=== PATIENT | male | born 1985 | race Caucasian/White ===

== ENCOUNTER 2016-10-19 16:05 | Emergency (ER) | payer OTHER, MEDICARE ==
[~2016-10-19] VITALS: Ht 175.3 cm; Wt 80.0 kg
[~2016-10-19 16:05] MED LIST: AUGM875T PO; CLON.1 PO; DOXY100T PO; LORTA5 PO
[2016-10-19 16:45] VITALS: BP 110/58; PULSE 85; RESP 22; O2SAT 96
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
[2016-10-19] MEDS ORDERED: CYCL1TAB29 PO (16:56)
[2016-10-19] MEDS ORDERED: IBUP800T23 PO (16:56)
[2016-10-19] MEDS ORDERED: CYCLOBENZAPRINE HCL 10 MG TAB PO ONE (17:00)
[2016-10-19] MEDS ORDERED: IBUPROFEN 800 MG TAB PO ONE (17:00)
== END 2016-10-19 17:23 | disposition home or self-care (01) ==
LOC: NEPB 16:05
DX: M25.511 Pain in right shoulder (principal); S60.812A Abrasion of left wrist, initial encounter; G89.29 Other chronic pain; M54.9 Dorsalgia, unspecified; F17.210 Nicotine dependence, cigarettes, uncomplicated; V49.40XA Driver injured in collision with unspecified motor vehicles in traffic accident, initial encounter
CPT/HCPCS: 99284

== ENCOUNTER 2017-03-26 23:25 | Inpatient (IN) | payer MEDICARE ==
[~2017-03-26] VITALS: Ht 157.5 cm; Wt 71.0 kg
[~2017-03-26 23:25] MED LIST changes: -AUGM875T PO; -CLON.1 PO; +CYCL1TAB29 PO; -DOXY100T PO; +IBUP800T23 PO; -LORTA5 PO
[2017-03-26 23:27] VITALS: BP 133/60; PULSE 100; RESP 16; TEMP 100.1; O2SAT 98
[2017-03-27] MEDS ORDERED: TRAZ100T6 PO (00:18)
[2017-03-27] MEDS ORDERED: ACETAMINOPHEN 325 MG TAB PO ONE (00:30)
[2017-03-27] MEDS ORDERED: CLINDAMYCIN INJ 900 MG in SODIUM CHLORIDE 0.9% INJ 100 ML IV ONE (00:30)
[2017-03-27] MEDS ORDERED: SODIUM CHLOR 0.9% 1000 ML INJ 1,000 ML IV ONE (00:30)
[2017-03-27] MEDS ORDERED: CLIN1CAP5 PO (00:33)
--- NOTE | 2017-03-27 00:33 | PD ---
HPI Chief Complaint: Laceration/Skin Injury Time Seen by Provider: 00:14 Travel History International Travel<30 days: No Contact w/Intl Traveler<30days: No Traveled to known affect area: No History of Present Illness HPI The patient 31 years old. He's had a right index finger wound for about 1 week. He believes is due to one of his dogs claws. Lately he has been cleaning the wound daily and using peroxide which has helped with the healing he reports. He notes over the past couple days developed swelling and erythema about the bilateral lower extremities. The lower extremity erythema can be painful at times. Patient states he is currently abusing IV heroin. He denies a fever here almost temperature is 100.1 in triage. PFSH Past Medical History Hx Anticoagulant Therapy: No Cardiovascular Problems: No Chemotherapy: No Cerebrovascular Accident: No Diabetes: No Diminished Hearing: No Musculoskeletal: Yes (RT SIDED PARALYSIS) Respiratory: No Immunizations Current: Yes Past Surgical History Pacemaker: No Social History Alcohol Use: No Tobacco Use: Yes (1 ppd) Substance Use: Yes (herion) Allergies-Medications (Allergen,Severity, Reaction): Coded Allergies: No Known Allergies (Verified , 03/27/17) Reported Meds & Prescriptions Reported Meds & Active Scripts Active Clindamycin (Clindamycin HCl) 150 Mg Cap 450 Mg PO Q8HR 14 Days Flexeril (Cyclobenzaprine HCl) 10 Mg Tab 10 Mg PO TID PRN Reported Trazodone (Trazodone HCl) 100 Mg Tablet 100 Mg PO HS Review of Systems Except as stated in HPI: all other systems reviewed are Neg General / Constitutional: No: Fever (patient denies) Skin: Positive Lesions Psychiatric: Positive: Substance Abuse Physical Exam Narrative GENERAL: 31-year-old male well-nourished well-developed SKIN: Warm and dry. HEAD: Atraumatic. Normocephalic. EYES: Pupils equal and round. No scleral icterus. No injection or drainage. ENT: No nasal bleeding or discharge. Mucous membranes pink and moist. NECK: Trachea midline. No JVD. CARDIOVASCULAR: Regular rate and rhythm. RESPIRATORY: No accessory muscle use. Clear to auscultation. Breath sounds equal bilaterally. GASTROINTESTINAL: Abdomen soft, non-tender, nondistended. Hepatic and splenic margins not palpable. MUSCULOSKELETAL: Extremities without clubbing, cyanosis, or edema. No obvious deformities. Along the dorsal aspect of the right index finger overlying the proximal phalanx there is a 3 cm ulcerated lesion with granulation tissue and surrounding erythema. There is minimal tenderness overlying the wound margins. There is minimal tenderness with flexion range of motion of the right index finger. There is no swelling involving the middle or distal phalanx. There is no flexion at rest. The bilateral lower feet have areas of confluent erythema with areas of maculopapular erythema blanching without fluctuance. NEUROLOGICAL: Awake and alert. No obvious cranial nerve deficits. Motor grossly within normal limits. Five out of 5 muscle strength in the arms and legs. Normal speech. PSYCHIATRIC: Appropriate mood and affect; insight and judgment normal. Data Data Last Documented VS Vital Signs Date Time Temp Pulse Resp B/P Pulse Ox O2 Delivery O2 Flow Rate FiO2 03/27/17 02:32 16 03/26/17 23:27 100.1 100 133/60 98 Room Air Vital signs reviewed Orders Basic Metabolic Panel (Bmp) (03/27/17 00:23) Complete Blood Count With Diff (03/27/17 00:23) Wound Culture And Gram Stain (03/27/17 00:23) Iv Access Insert/Monitor (03/27/17 00:23) Wound Care (03/27/17 00:23) Clindamycin Inj (Cleocin Inj) (03/27/17 00:30) Sodium Chlor 0.9% 1000 Ml Inj (Ns 1000 M (03/27/17 00:30) Acetaminophen (Tylenol) (03/27/17 00:30) Admit Order (Ed Use Only) (03/27/17 02:35) Labs Laboratory Tests Test 03/27/17 01:30 White Blood Count 21.7 TH/MM3 Red Blood Count 4.71 MIL/MM3 Hemoglobin 14.4 GM/DL Hematocrit 40.6 % Mean Corpuscular Volume 86.2 FL Mean Corpuscular Hemoglobin 30.5 PG Mean Corpuscular Hemoglobin 35.4 % Concent Red Cell Distribution Width 13.9 % Platelet Count 368 TH/MM3 Mean Platelet Volume 8.0 FL Neutrophils (%) (Auto) 71.1 % Lymphocytes (%) (Auto) 17.2 % Monocytes (%) (Auto) 9.6 % Eosinophils (%) (Auto) 1.2 % Basophils (%) (Auto) 0.9 % Neutrophils # (Auto) 15.4 TH/MM3 Lymphocytes # (Auto) 3.7 TH/MM3 Monocytes # (Auto) 2.1 TH/MM3 Eosinophils # (Auto) 0.3 TH/MM3 Basophils # (Auto) 0.2 TH/MM3 CBC Comment DIFF FINAL Differential Comment Sodium Level 135 MEQ/L Potassium Level 3.9 MEQ/L Chloride Level 99 MEQ/L Carbon Dioxide Level 26.4 MEQ/L Anion Gap 10 MEQ/L Blood Urea Nitrogen 19 MG/DL Creatinine 1.01 MG/DL Estimat Glomerular Filtration 87 ML/MIN Rate Random Glucose 113 MG/DL Calcium Level 8.9 MG/DL [facility] Medical Decision Making Medical Screen Exam Complete: Yes Emergency Medical Condition: Yes Medical Record Reviewed: Yes Differential Diagnosis Cellulitis, abscess, dermatitis Narrative Course CBC & BMP Diagram 03/27/17 01:30 Neutrophils 71 Patient has received 900 mg IV clindamycin. He'll be admitted for IV antibiotics for cellulitis of the finger and feet with a leukocytosis of 22,000 fever and tachycardia. d/w Dr Dougherty. Sepsis Criteria SIRS Criteria (2 or more): Heart rate over 90, WBC > 71447, < 4000 or > 10% bands Sepsis Criteria (SIRS+source): Infect source susp/known Diagnosis Primary Impression: Cellulitis Qualified Code: L03.811 - Cellulitis of head except face Admitting Information Admitting Physician Requests: Observation Referrals: Primary Care Physician 2 days Scripts Clindamycin 150 Mg [id number] Mg PO Q8HR 14 Days Ref 0 Prov:Cory Rivero MD 03/27/17 Cory Rivero MD Mar 27, 2017 00:33
[2017-03-27 01:56] LABS: AUTOMATED NEUTROPHIL # 15.4 TH/MM3 (1.8-7.7); BASOPHIL # 0.2 TH/MM3 (0-0.2); BASOPHIL % 0.9 % (0.0-2.0); EOSINOPHIL # 0.3 TH/MM3 (0-0.4); EOSINOPHIL % 1.2 % (0.0-4.0); HEMATOCRIT 40.6 % (39.0-51.0); HEMO FLAGS DIFF FINAL; LYMPH % 17.2 % (9.0-44.0); LYMPHOCYTE # 3.7 TH/MM3 (1.0-4.8); MEAN CELL VOLUME 86.2 FL (80.0-100.0); MEAN CORPUSCULAR HEMOGLOBIN 30.5 PG (27.0-34.0); MEAN CORPUSCULAR HGB CONC 35.4 % (32.0-36.0); MONO % 9.6 % (0.0-8.0); NEUT % 71.1 % (16.0-70.0); PLATELET COUNT 368 TH/MM3 (150-450); RED BLOOD COUNT 4.71 MIL/MM3 (4.50-5.90); RED CELL DISTRIBUTION WIDTH 13.9 % (11.6-17.2); WHITE BLOOD COUNT 21.7 TH/MM3 (4.0-11.0)
[2017-03-27 02:13] LABS: BICARBONATE 26.4 MEQ/L (21.0-32.0); POTASSIUM 3.9 MEQ/L (3.5-5.1)
[2017-03-27 02:32] VITALS: RESP 16
[2017-03-27] MEDS ORDERED: SODIUM CHLOR 0.9% 1000 ML INJ 1,000 ML IV SCH (02:38)
[2017-03-27] MEDS ORDERED: LACTULOSE SYRUP 20 GM/30 ML CUP PO PRN (02:45)
[2017-03-27] MEDS ORDERED: BISACODYL 10 MG SUPP RECTAL PRN (02:45)
[2017-03-27] MEDS ORDERED: MAGNESIUM HYDROXIDE SUSP 30 ML CUP PO PRN (02:45)
[2017-03-27] MEDS ORDERED: ACETAMINOPHEN 325 MG TAB PO PRN (02:45)
[2017-03-27] MEDS ORDERED: LORazepam 2 MG/ML VIAL IV PUSH PRN (02:45)
[2017-03-27] MEDS ORDERED: SENNOSIDES 8.6 MG TAB PO PRN (02:45)
[2017-03-27] MEDS ORDERED: SODIUM CHLORIDE 0.9% FLUSH 10 ML FLUSH IV FLUSH PRN (02:45)
[2017-03-27] MEDS ORDERED: ONDANSETRON HCL 4 MG/2 ML VIAL IVP PRN (02:45)
[2017-03-27] MEDS ORDERED: CEFEPIME INJ 1,000 MG in SODIUM CHLORIDE 0.9% INJ 100 ML IV SCH (03:00)
--- NOTE | 2017-03-27 03:45 | HHI.HP ---
[facility] Primary [facility] Physician No Primary Care Physician Admission Diagnosis cellulitis Diagnoses: (1) Sepsis Diagnosis: Principal (2) Cellulitis Diagnosis: Principal (3) Dehydration Diagnosis: Principal (4) IVDU (intravenous drug user) Diagnosis: Principal (5) Tobacco abuse Diagnosis: Principal Travel History International Travel<30 Days: No Contact w/Intl Traveler <30 Da: No Traveled to Known Affected Are: No History of Present Illness This is a 39-year-old male with a PMH of IVDU w/ Heroin and Tobacco Abuse who presented to the ER with complaints of right finger swelling and pain in addition to redness and pain in bilateral feet. Reports symptoms of been ongoing for approx 1wk. Denies fever or chills. On arrival, BP 133/60, HR 100 , O2 sat 98% on RA, Temp 100.1. WBC 21.7. Chemistry unremarkable except for BUN 19, GFR 87. S/p Blood Cultures, Clinda IV in ER Review of Systems Except as stated in HPI: all other systems reviewed are Neg ROS: 14 point review of systems otherwise negative. Past Family Social History Past Medical History PMH: IVDU w/ Heroin and Tobacco Abuse Past Surgical History PAST SURGICAL HISTORY: None Allergies: Coded Allergies: No Known Allergies (Verified , 03/27/17) Family History PAST FAMILY HISTORY: Reviewed. No h/o DM or CAD Social History PAST SOCIAL HISTORY: Negative for alcohol. Smokes 1ppd. +IVUD w/ Heroin. Physical Exam Vital Signs Vital Signs Date Time Temp Pulse Resp B/P Pulse Ox O2 Delivery O2 Flow Rate FiO2 03/27/17 02:32 16 03/26/17 23:27 100.1 100 16 133/60 98 Room Air Physical Exam PE: GENERAL: Young white male in no acute distress. HEENT: PERRLA, EOMI. No scleral icterus or conjunctival pallor. No lid lag or facial droop. CARDIOVASCULAR: Regular rate and rhythm. No obvious murmurs to auscultation. No chest tenderness to palpation. RESPIRATORY: No obvious rhonchi or wheezing. Clear to auscultation. Breath sounds equal bilaterally. GASTROINTESTINAL: Abdomen soft, non-tender, nondistended. BS normal. MUSCULOSKELETAL: Extremities without clubbing, cyanosis, or edema. No obvious deformities. Right index finger w/ erythema/edema, full ROM. Bilateral lower extremities w/ erythema NEUROLOGICAL: Awake, alert and oriented x4. No focal neurologic deficits. Moving both upper and lower extremities spontaneously. Laboratory Laboratory Tests Test 03/27/17 01:30 White Blood Count 21.7 Red Blood Count 4.71 Hemoglobin 14.4 Hematocrit 40.6 Mean Corpuscular Volume 86.2 Mean Corpuscular Hemoglobin 30.5 Mean Corpuscular Hemoglobin 35.4 Concent Red Cell Distribution Width 13.9 Platelet Count 368 Mean Platelet Volume 8.0 Neutrophils (%) (Auto) 71.1 Lymphocytes (%) (Auto) 17.2 Monocytes (%) (Auto) 9.6 Eosinophils (%) (Auto) 1.2 Basophils (%) (Auto) 0.9 Neutrophils # (Auto) 15.4 Lymphocytes # (Auto) 3.7 Monocytes # (Auto) 2.1 Eosinophils # (Auto) 0.3 Basophils # (Auto) 0.2 CBC Comment DIFF FINAL Differential Comment Sodium Level 135 Potassium Level 3.9 Chloride Level 99 Carbon Dioxide Level 26.4 Anion Gap 10 Blood Urea Nitrogen 19 Creatinine 1.01 Estimat Glomerular Filtration 87 Rate Random Glucose 113 Calcium Level 8.9 Date/Time Procedure Status Source Growth 03/27/17 01:15 Gram Stain Received Wound Finger Pending 03/27/17 01:15 Wound Culture Received Wound Finger Pending Result Diagram: 03/27/17 0130 03/27/17 0130 Assessment and Plan Problem List: (1) Sepsis ICD Code: A41.9 Status: Acute (2) Cellulitis ICD Code: L03.90 Status: Acute (3) Dehydration ICD Code: E86.0 Status: Acute (4) IVDU (intravenous drug user) ICD Code: F19.90 Status: Acute (5) Tobacco abuse ICD Code: Z72.0 Status: Acute Assessment and Plan A/P: 1. Sepsis: Temp 100.1, HR 100, WBC 21.7, Source-Finger/LE Cellulitis. S/p Blood Cultures, Clinda IV in ER, will follow up cultures, continue w/ IV Abx. 2. Cellulitis: Right Index Finger and Bilateral Lower Extremity Cellulitis, continue w/ treatment as above. Hand Sx as needed if no improvement w/ IV Abx, full ROM at this time. 3. Dehydration: BUN 19, GFR 87. IVF for hydration, repeat labs in am. 4. IVDU: w/ Heroin, uses daily. Ativan prn for withdrawal. 5. Tobacco Abuse: Pt counselled. Ativan/NicoDerm prn if needed. 6. DVT Prophylaxis: Mechanical contraindication secondary to lower extremity cellulitis. Pt ambulatory. 7. Social work for d/c planning as needed. 8. Case discussed w/ ER physician at length. Physician Certification 2 Midnight Certification Type: Admission for Inpatient Services Order for Inpatient Services The services are ordered in accordance with Medicare regulations or non- Medicare payer requirements, as applicable. In the case of services not specified as inpatient-only, they are appropriately provided as inpatient services in accordance with the 2-midnight benchmark. Estimated LOS (days): 2 days is the estimated time the patient will need to remain in the hospital, assuming treatment plan goals are met and no additional complications. Post-Hospital Plan: Not yet determined Problem Qualifiers (1) Cellulitis: Qualified Code: L03.811 - Cellulitis of head except face Kasia Dougherty MD Mar 27, 2017 03:45
--- NOTE | 2017-03-27 04:13 | PD.AMA ---
Against Medical Advice Note Discharge Disposition: Against Medical Advice Pt Condition on Discharge: Guarded AMA Statement Patient Jesse Webster has decided to leave the hospital against medical advice. This patient has the capacity to refuse care and understands the risks of leaving, including permanent disability and/or , and has had an opportunity to ask questions about his condition. The patient has been informed that he may return for care at any time, and follow up has been arranged/ advised. Patient is A&Ox3 and did not want to stay in the hospital tonight. He states he will just go to his pcp on Tuesday. He verbalizes understanding of the risks with leaving AMA. Aliya Gómez Mar 27, 2017 04:13
[2017-03-27] MEDS ORDERED: CLINDAMYCIN INJ 900 MG in SODIUM CHLORIDE 0.9% INJ 100 ML IV SCH (08:00)
[2017-03-27] MEDS ORDERED: DOCUSATE SODIUM 50 MG/SENNA 8.6 MG TAB PO SCH (09:00)
[2017-03-27] MEDS ORDERED: SODIUM CHLORIDE 0.9% FLUSH 10 ML FLUSH IV FLUSH SCH (09:00)
== END 2017-03-27 03:51 | disposition left against medical advice (07) | DRG 872 ==
LOC: NEPC 23:25 → NEDA 03-27 02:36 → NEPGCP 03-27 03:50 → UNDODISIN 03-27 03:51
PROVIDERS: ADMIT Hospitalist; ATTEND Hospitalist
DX: A41.9 Sepsis, unspecified organism (principal); L03.115 Cellulitis of right lower limb; L03.116 Cellulitis of left lower limb; L03.011 Cellulitis of right finger; E86.0 Dehydration; F17.210 Nicotine dependence, cigarettes, uncomplicated; F11.10 Opioid abuse, uncomplicated; R00.0 Tachycardia, unspecified
CPT/HCPCS: 80048; 85025; 86403; 87070; 87186; 96365; J7030